=== PATIENT | female | born 1960 | race Hispanic/Latino ===

== ENCOUNTER → 2017-10-10 | Outpatient (CLI) | payer MEDICAID | END | disposition home or self-care (01) | LOC: RAH 07:57 | PROVIDERS: ATTEND Family Medicine | DX: R10.11 Right upper quadrant pain (principal) | CPT/HCPCS: 76705 ==

== ENCOUNTER → 2018-07-15 | Outpatient (CLI) | payer MEDICAID | END | disposition home or self-care (01) | LOC: RAH 15:58 | PROVIDERS: ATTEND Internal Medicine Rheumatology | DX: Z13.820 Encounter for screening for osteoporosis (principal); M06.4 Inflammatory polyarthropathy; M54.16 Radiculopathy, lumbar region | CPT/HCPCS: 72110; 72200; 73030; 73521 ==

== ENCOUNTER → 2018-09-26 | Outpatient (CLI) | payer MEDICAID ==
[2018-09-26 15:41] LABS: BASOPHILS % (AUTO) 0.4 % (0.0-5.0); EOSINOPHILS % (AUTO) 1.9 % (0.0-8.0); HEMATOCRIT 40.6 % (36-48); LYMPHOCYTES % (AUTO) 23.6 % (21.0-51.0); MEAN CORPUSCULAR HEMOGLOBIN 25.3 pg (27.0-33.0); MEAN CORPUSCULAR HGB CONC 31.9 g/dL (32.0-36.0); MEAN CORPUSCULAR VOLUME 79.3 fL (79-99); NEUTROPHILS % (AUTO) 69.1 % (40.0-77.0); NUCLEATED RED BLOOD CELLS 0.1 % (0.0-0.19); PLATELET COUNT (AUTO) 255 K/uL (130-400); RED BLOOD CELL COUNT(AUTO) 5.12 MIL/uL (4.00-5.50); RED CELL DISTRIBUTION WIDTH 17.3 % (11.0-15.5); WHITE BLOOD COUNT (AUTO) 6.6 K/uL (4.8-10.8)
[2018-09-26 15:54] LABS: ALBUMIN 2.8 g/dL (3.5-5.0); BILIRUBIN,TOTAL 0.3 mg/dL (0.2-1.0); CREATININE 0.7 mg/dL (0.5-1.5); CRP QUANTITATIVE 19.7 mg/L (0.00-9.0); TOTAL PROTEIN, SERUM 7.2 g/dL (6.0-8.3)
[2018-09-26 16:49] LABS: ERYTHROCYTE SEDIMENTATION RATE 34 MM/HR (0-30)
== END | disposition home or self-care (01) ==
LOC: RAH 14:33
PROVIDERS: ATTEND Internal Medicine Rheumatology
DX: M06.89 Other specified rheumatoid arthritis, multiple sites (principal); E04.1 Nontoxic single thyroid nodule; Z79.899 Other long term (current) drug therapy
CPT/HCPCS: 36415; 76536; 80053; 85025; 85651; 86140; 93005

== ENCOUNTER → 2018-10-17 | Outpatient (CLI) | payer MEDICAID | END | disposition home or self-care (01) | LOC: RAH 07:50 | PROVIDERS: ATTEND Family Medicine | DX: K76.0 Fatty (change of) liver, not elsewhere classified (principal); I51.7 Cardiomegaly; R06.02 Shortness of breath | CPT/HCPCS: 76700; 76775; 93306 ==

== ENCOUNTER → 2019-01-13 | Outpatient (CLI) | payer MEDICAID ==
--- NOTE | 2019-01-13 10:00 | NUR ---
MBSS COMPLETE. -S/S OF ASPIRATION. RECOMMEND REGULAR, THIN LIQUID DIET; PILLS WHOLE WITH LIQUIDS. PATIENT INFORMATION: Pt IS A 58 Y.O. FEMALE REFERRED FOR A BEDSIDE DYSPHAGIA EVALUATION SECONDARY TO C/O DIFFICULTY SWALLOWING FOODS AND LIQUIDS. Pt AAOX3 AND SERVED THE PRIMARY INFORMANT FOR MEDICAL AND SOCIAL HISTORY. Pt DESCRIBES SWALLOWING DIFFICULTY FOOD GETTING STUCK IN THE BACK OF HER THROAT. Pt HAS A PAST MEDICAL HISTORY SIGNIFICANT FOR ASTHMA, RA, FIBROMYALGIA, DM, OSTEOPOROSIS, THYROID MASS/BENIGN (DIAGNOSED 2 MONTHS AGO). Pt CURRENTLY USING WHEELCHAIR. EVALUATION: SWALLOW FUNCTION AND EFFICIENCY WITHIN FUNCTIONAL LIMITS. ORAL MOTOR STRENGTH, COORDINATION, AND ROM WITHIN FUNCTIONAL LIMITS. LARYNGEAL ELEVATION/EXCURSION STRONG WITH TIMELY PHARYNGEAL RESPONSE. NO OVERT SIGNS OR SYMPTOMS OF ASPIRATION PRESENT DURING MBSS. Pt MISSING PARTIAL DENTURE DURING MBSS RESULTING IN MILD RESIDUE IN [place] WITH SOLIDS (CLEARED WITH RE-SWALLOW OR LIQUID WASH). RECOMMENDATIONS: 1. REGULAR TEXTURE, THIN LIQUID DIET; PILLS WHOLE WITH LIQUIDS. 2. COMPENSATORY STRATEGIES (PROPHYLAXIS): *SEATED AT 90 DEGREE ANGLE *ALTERNATE BITES AND SIPS OR RE-SWALLOW *SLOW RATE *REMAIN UPRIGHT 30 MINUTES AFTER MEAL TIMES G-CODES SWALLOWING: [id number] Addendum: 01/13/19 at [address] Amended: Links added.
== END | disposition home or self-care (01) ==
LOC: RAH 09:58
PROVIDERS: ATTEND Family Medicine
DX: K21.0 Gastro-esophageal reflux disease with esophagitis (principal); R13.10 Dysphagia, unspecified
CPT/HCPCS: 74230; 76770; 92611

== ENCOUNTER → 2019-02-13 | Outpatient (CLI) | payer MEDICAID | END | disposition home or self-care (01) | LOC: OIH 08:22 | PROVIDERS: ATTEND Family Medicine | DX: Z01.818 Encounter for other preprocedural examination (principal); I11.9 Hypertensive heart disease without heart failure; M47.815 Spondylosis without myelopathy or radiculopathy, thoracolumbar region | CPT/HCPCS: 71046 ==

== ENCOUNTER 2019-02-23 12:15 | Observation (INO) | payer MEDICAID ==
[~2019-02-23] VITALS: Ht 157.5 cm; Wt 81.6 kg
[2019-02-23 17:20] VITALS: BP 105/69
[2019-02-23] MEDS ORDERED: AMIT50TA3 PO (19:02)
[2019-02-23] MEDS ORDERED: FOLI1TAB15 PO (19:02)
[2019-02-23] MEDS ORDERED: SIMV40TA59 PO (19:02)
[2019-02-23] MEDS ORDERED: PRO AIR IH (19:02)
[2019-02-23] MEDS ORDERED: PANT40TA25 PO (19:02)
[2019-02-23] MEDS ORDERED: SYMBICORT IH (19:02)
[2019-02-23] MEDS ORDERED: TYL4 PO (19:02)
[2019-02-23] MEDS ORDERED: ZOLP10TA2 PO (19:02)
[2019-02-23] MEDS ORDERED: MONT10TA21 PO (19:02)
[2019-02-23] MEDS ORDERED: clonazepam PO (19:02)
[2019-02-23] MEDS ORDERED: CHOL500050 PO (19:02)
[2019-02-23] MEDS ORDERED: PREG200C PO (19:02)
[2019-02-24] VITALS (23 sets, daily range): BP systolic 100–136; BP diastolic 60–75
[2019-02-24] MEDS ORDERED: SODIUM CHLORIDE 0.9% 1000ML 1,000 ML IV ONE (08:29)
[2019-02-24] MEDS: CEFAZOLIN SODIUM 1 GM VIAL IVP ONE ×2 (08:45→10:36)
[2019-02-24] MEDS ORDERED: LIDOCAINE PF 2% 5ML ABBOJECT ONE (09:31)
[2019-02-24] MEDS ORDERED: DEXAMETHASONE SOD PHOSPHATE 10MG/ML 1ML VIAL ONE (09:31)
[2019-02-24] MEDS ORDERED: ONDANSETRON HCL 4 MG/2 ML VIAL ONE (09:31)
[2019-02-24] MEDS ORDERED: PROPOFOL 10 MG/ML 20ML VIAL IV ONE (09:31)
[2019-02-24] MEDS ORDERED: MIDAZOLAM HCL 1 MG/ML 2ML VIAL ONE (09:32)
[2019-02-24] MEDS ORDERED: FENTANYL CITRATE PF 50 MCG/1 ML 2ML VIAL ONE (09:32)
[2019-02-24] MEDS ORDERED: ROCURONIUM 10MG/1ML SYR 10 MG/ML ML ONE (09:57)
[2019-02-24] MEDS ORDERED: ROPIVACAINE 0.5% 5MG/ML 30ML IJ ONE (10:01)
[2019-02-24] MEDS ORDERED: GLYCOPYRROLATE 1 MG/5 ML SYRINGE ONE (12:08)
[2019-02-24] MEDS ORDERED: MEPERIDINE-PF 25 MG/ML SYG ONE (12:53)
--- NOTE | 2019-02-24 13:53 | NUR ---
FROM PACU PT ARRIVED TO PACU, PT IS AWAKE, ALERT AND ORIENTED X3, VOICES NO COMPLAINTS OF PAIN, LEFT SHOULDER DRESSING D/I, ICE PACKS IN PLACE, IMMOBILIZER IN PLACE, STATES HAS NUMBNESS TO LEFT HAND, RADIAL PULSE PRESENT, GOOD CAPILLARY REFILL, PLAN OF CARE DISCUSSED, ORIENTED TO ROOM, CALL CLANCY WITHIN REACH.
--- NOTE | 2019-02-24 14:15 | NUR ---
CALL TO DR. Sloan MAZARIEGOS T/C PLACED TO DR. MAZARIEGOS, INFORMED HIM OF HIS CENSUS
[2019-02-24] MEDS ORDERED: MEPERIDINE HCL/PF 25 MG/0.5 ML AMPUL IVP PRN ×4 (14:30→18:45)
[2019-02-24] MEDS ORDERED: MEPERIDINE-PF 25 MG/ML SYG IVP PRN (15:55)
[2019-02-24] MEDS ORDERED: MEPERIDINE-PF 50 MG/ML SYG IVP PRN ×2 (15:56→18:48)
[2019-02-24] MEDS ORDERED: CEFAZOLIN SODIUM 1 GM VIAL ONE (15:59)
[2019-02-24] MEDS ORDERED: ACETAMINOPHEN 325 MG TAB PO PRN (16:15)
[2019-02-24] MEDS ORDERED: MORPHINE SULFATE 5 MG/ML VIAL IM PRN ×2 (16:15→21:15)
[2019-02-24] MEDS ORDERED: PHARMACY COMMUNICATION MISC SCH (16:15)
[2019-02-24] MEDS ORDERED: MAGNESIUM HYDROXIDE 30 ML/UDCUP PO SCH (16:15)
[2019-02-24] MEDS ORDERED: DEXTROSE 5%-LACTATED RINGERS 1,000 ML IV SCH (16:15)
[2019-02-24] MEDS ORDERED: PROMETHAZINE HCL 25 MG/ML 1ML AMPULE IM PRN (16:15)
[2019-02-24] MEDS: CEFAZOLIN SODIUM 1 GM VIAL IVP SCH (16:45)
[2019-02-24] MEDS ORDERED: BISACODYL 10 MG SUPP.RECT RC ONE (17:45)
[2019-02-24] MEDS ORDERED: ZOLPIDEM TARTRATE 5 MG TAB PO PRN (18:30)
[2019-02-24] MEDS ORDERED: [UNRECOGNIZED DRUG - OTHER] PO PRN (18:30)
[2019-02-24 18:43] LABS: HEMATOCRIT 38.4 % (36-48)
[2019-02-24] MEDS: PHARMACY COMMUNICATION MISC SCH (19:00)
[2019-02-24] MEDS ORDERED: CLONAZEPAM 1 MG TABLET PO PRN (19:45)
[2019-02-24] MEDS ORDERED: SYMBICORT 160-4.5 MCG INHALER IH PRN (20:15)
[2019-02-24] MEDS ORDERED: VENTOLIN HFA IH PRN (20:15)
[2019-02-24] MEDS ORDERED: BUDE10.2 IH (20:18)
[2019-02-24] MEDS ORDERED: ALBU8.5H8 IH (20:18)
[2019-02-24] MEDS: PREGABALIN 100 MG CAPSULE PO SCH (20:20)
[2019-02-24] MEDS ORDERED: MORPHINE SULFATE 2 MG/ML 1ML SYG IV PRN ×2 (20:45)
[2019-02-24] MEDS ORDERED: SIMVASTATIN 20 MG TABLET PO SCH (21:00)
[2019-02-24] MEDS ORDERED: AMITRIPTYLINE HCL 25 MG TABLET PO SCH (21:00)
[2019-02-25] MEDS: CEFAZOLIN SODIUM 1 GM VIAL IVP SCH ×2 (00:26→09:01)
[2019-02-25] MEDS: PHARMACY COMMUNICATION MISC SCH ×2 (03:00→11:00)
[2019-02-25 06:17] LABS: HEMATOCRIT 35.5 % (36-48)
[2019-02-25 08:00] VITALS: BP 123/69
[2019-02-25] MEDS ORDERED: FOLIC ACID 1 MG TABLET PO SCH (09:00)
[2019-02-25] MEDS ORDERED: PANTOPRAZOLE SODIUM 40 MG TABLET.DR PO SCH (09:00)
[2019-02-25] MEDS: PREGABALIN 100 MG CAPSULE PO SCH (09:04)
[2019-02-25] MEDS ORDERED: KETOROLAC TROMETHAMINE 30MG/ML ONE (09:08)
[2019-02-25 11:00] VITALS: BP 100/60
--- NOTE | 2019-02-25 13:30 | NUR ---
11:45 PHYSICAL THERAPIST ASSISTED NURSING TO READJUSTED PATIENT'S ABDUCTOR PILLOW TO HER LEFT SHOULDER AND PATIENT WAS ABLE TO SIT AT THE EDGE OF THE BED WITHOUT ANY DIFFICULTY.FELICIANO COTTER WAS PRESENT.PER PATIENT AND SON - PATIENT WAS NON-AMBULATORY FOR 12 YEARS.PATIENT USES WHEELCHAIR OR OFFICE CHAIR MODE OF LOCOMOTION AT HOME.PER FELICIANO COTTER, PATIENT IS SCHEDULE TO BE D/C TODAY AND HAS TO SEE DR. LEON IN HIS OFFICE TOMORROW AM FOR FOLOW UP. Addendum: 02/25/19 at 1344 by MURALI ART, PT PT Amended: Links added.
[2019-02-25] MEDS ORDERED: KETOROLAC TROMETHAMINE 30MG/ML IM PRN (15:30)
[2019-03-03] MEDS ORDERED: ERGOCALCIFEROL (VITAMIN D2) 50,000 UNIT CAPSULE PO SCH (09:00)
== END 2019-02-25 16:01 | disposition home or self-care (01) ==
LOC: DAHIP 02-24 07:34 → 4AH 02-24 13:30 → EDSTATUS 02-26 12:15
DX: M75.100 Unspecified rotator cuff tear or rupture of unspecified shoulder, not specified as traumatic (principal); M06.9 Rheumatoid arthritis, unspecified; M17.11 Unilateral primary osteoarthritis, right knee; M65.819 Other synovitis and tenosynovitis, unspecified shoulder; M75.42 Impingement syndrome of left shoulder; M79.7 Fibromyalgia; M81.0 Age-related osteoporosis without current pathological fracture; E11.9 Type 2 diabetes mellitus without complications; E66.9 Obesity, unspecified; E78.00 Pure hypercholesterolemia, unspecified; E78.5 Hyperlipidemia, unspecified; I10 Essential (primary) hypertension; I25.2 Old myocardial infarction; G89.29 Other chronic pain; J45.909 Unspecified asthma, uncomplicated; K21.9 Gastro-esophageal reflux disease without esophagitis; F41.8 Other specified anxiety disorders; T84.093A Other mechanical complication of internal left knee prosthesis, initial encounter; Y79.2 Prosthetic and other implants, materials and accessory orthopedic devices associated with adverse incidents; Z99.3 Dependence on wheelchair; Z96.659 Presence of unspecified artificial knee joint; Z79.899 Other long term (current) drug therapy
CPT/HCPCS: 23120; 23130; 23412; 23415; 36415 ×2; 82948; 85014 ×3; 85018 ×3; 88304; 88305; 88311; 94760; 96372 ×2; 96374; 96375; 96376; A4510; A4600; A4606; A4649; A4930; A6223; C1713 ×2; G0378 ×30; J0690 ×4; J1100; J1885 ×2; J2001; J2175 ×3; J2250; J2270; J2405; J2550; J2704; J2795; J3010; J3490; J7030 ×2

== ENCOUNTER → 2019-03-20 | Outpatient (CLI) | payer MEDICAID ==
[~2019-03-20] MED LIST: ALBU8.5H8 IH; AMIT50TA3 PO; BUDE10.2 IH; CHOL500050 PO; FOLI1TAB15 PO; IOHEXOL-350 75 ML VIAL IV ONE; PANT40TA25 PO; PREG200C PO; PRO AIR IH; SIMV40TA59 PO; SYMBICORT IH; TYL4 PO; ZOLP10TA2 PO; clonazepam PO
== END | disposition home or self-care (01) ==
LOC: RAH 08:29
PROVIDERS: ATTEND Urology
DX: K80.20 Calculus of gallbladder without cholecystitis without obstruction (principal); N32.89 Other specified disorders of bladder
CPT/HCPCS: 74178; Q9967